=== PATIENT | male | born 1980 | race Caucasian/White ===

== ENCOUNTER 2017-05-10 14:00 | Emergency (ER) | payer OTHER ==
--- NOTE | 2017-05-10 14:20 | CPEKG ---
Heart Rate: 89 RR Interval: 674 P-R Interval: 164 QRSD Interval: 100 QT Interval: 380 QTC Interval: 463 P [place]: 72 QRS [place]: 58 T Wave [place]: 6 EKG Severity - NORMAL ECG - EKG Impression: SINUS RHYTHM Electronically Signed By: Sherif Mazariegos 10-May-2017 14:36:35
--- NOTE | 2017-05-10 14:32 | EDPHY ---
H & P Smoking Status: Current every day smoker Time Seen by Provider: 05/10/17 14:23 HPI/ROS: Chief complaint. Shortness of breath, anxiety HPI. 36-year-old male presents emergency department with fairly sudden onset of some chest tightness, some shortness of breath, anxiety. Patient is in a 28 day rehab facility and he is at date 04/08 and contemplating being discharged in returning to his life in [place]. This is making him very anxious. He has had similar symptoms before. The chest tightness is described as precordial anterior chest without any radiation. Slight shortness of breath with and quite shaking and anxious. His symptoms are not worse with deep breathing position or movement. In fact he feels better with walking around and pacing. No fever cough. No unusual leg pain or swelling. No abdominal pain or nausea vomiting. ROS Constitutional. no fever/chills, no weakness Eyes. no problems with vision ENT. no sore throat, no nasal drainage Cardiovascular. Chest tightness Respiratory. Shortness of breath Abdominal. no abdominal pain, no nausea/vomiting, no diarrhea . no problems urinating MS. no calf pain/swelling, no neck/back pain, no joint pain Skin. no rash Lymph. no swollen glands Neuro. Anxiety (Sherif Mazariegos) Past Medical/Surgical History: The past medical history is significant for alcoholism, pancreatitis, anxiety No significant family history of early coronary artery disease (Sherif Mazariegos) Social History: The single, daily smoker, no alcohol (Sherif Mazariegos) Physical Exam: General Appearance: Alert, anxious well-developed male moderate distress vital signs significant for blood pressure 137/108 Eyes: Pupils equal and round no pallor or injection. ENT, Mouth: Mucous membranes are moist. Respiratory: There are no retractions, lungs are clear to auscultation. Cardiovascular: Regular rate and rhythm. Gastrointestinal: Abdomen is soft and nontender, no masses, bowel sounds normal. Neurological: Awake and alert, sensory and motor exams grossly normal. Skin: Warm and dry, no rashes. Musculoskeletal: Neck is supple nontender. Extremities symmetrical, full range of motion. Psychiatric: Patient is oriented X 3, he is anxious. (Sherif Mazariegos) Constitutional: Initial Vital Signs Temperature (C) 36.6 C 05/10/17 14:03 Heart Rate 87 05/10/17 14:03 Respiratory Rate 18 02/23/18 14:03 Blood Pressure 137/108 H 05/10/17 14:03 O2 Sat (%) 97 05/10/17 14:03 O2 Delivery Mode Room Air Allergies/Adverse Reactions: No Known Allergies Allergy (Unverified 05/10/17 14:03) Home Medications: Medication Instructions Recorded Abilify 05/10/17 Naloxone HCl 05/10/17 Omeprazole 05/10/17 Propranolol Sr 05/10/17 Prozac 10 MG (*) 05/10/17 Medical Decision Making - Diagnostics EKG Interpretation: EKG interpreted by me shows normal sinus rhythm normal interval and axis. QRS is normal there is no significant ST elevation or depression. There is no arrhythmia. The rate is 89 (Sherif Mazariegos) Repeat EKG EKG shows normal sinus rhythm, normal rate, normal axis, normal intervals. There are no ST or T-wave abnormalities. EKG is normal as interpreted by me. (Deysi Valdez) Procedures: IV normal saline, monitor (Sherif Mazariegos) ED Course/Re-evaluation: The patient tells me he has been to emergency department multiple times for anxiety similar to this. He has always been given Ativan which resolved his symptoms. Because he is in the treatment program he and the therapist who is with him requests no Ativan. He was given propranolol 40 mg prior to arrival ( Sherif Mazariegos) 1500: Patient was signed out to me at change of shift. Dr. Mazariegos reported that he felt this was likely anxiety related. He felt that the patient's cardiac enzyme and EKG was negative he could be discharged home. I went personally evaluated the patient. He had no chest pain at this time. Patient's troponin was unremarkable. EKG was normal. I discussed my plan with the patient. I will wait for 3 hr troponin and repeat EKG. He agrees with this plan. Repeat EKG is normal. Repeat troponin is normal. (Deysi Valdez) Differential Diagnosis: My differential includes but is not limited to ACS, acute [place], dysrhythmia, PE, dissection, aneurysm, pneumonia, bronchitis (Deysi Valdez) Care Turn Over: Care to Dr. Valdez at 3:00 p.m. (Sherif Mazariegos) - Data Points Laboratory Results: Laboratory Results 05/10/17 14:25 05/10/17 14:25 05/10/17 05/10/17 05/10/17 17:45 14:25 14:25 WBC 8.91 10^3/uL 10^3/uL (3.80-9.50) RBC 4.55 10^6/uL 10^6/uL (4.40-6.38) Hgb 15.6 g/dL g/dL (13.7-17.5) Hct 44.6 % % (40.0-51.0) MCV 98.0 fL fL (81.5-99.8) MCH 34.3 pg H pg (27.9-34.1) MCHC 35.0 g/dL g/dL (32.4-36.7) RDW 11.5 % % (11.5-15.2) Plt Count 244 10^3/uL 10^3/uL (150-400) MPV 10.2 fL fL (8.7-11.7) Neut % (Auto) 51.1 % % (39.3-74.2) Lymph % (Auto) 37.5 % % (15.0-45.0) [place] % (Auto) 6.1 % % (4.5-13.0) Eos % (Auto) 4.2 % % (0.6-7.6) Baso % (Auto) 0.9 % % (0.3-1.7) Nucleat RBC Rel Count 0.0 % % (0.0-0.2) Absolute Neuts (auto) 4.56 10^3/uL 10^3/uL (1.70-6.50) Absolute Lymphs (auto) 3.34 10^3/uL H 10^3/uL (1.00-3.00) Absolute Monos (auto) 0.54 10^3/uL 10^3/uL (0.30-0.80) Absolute Eos (auto) 0.37 10^3/uL 10^3/uL (0.03-0.40) Absolute Basos (auto) 0.08 10^3/uL 10^3/uL (0.02-0.10) Absolute Nucleated RBC 0.00 10^3/uL 10^3/uL (0-0.01) Immature Gran % 0.2 % % (0.0-1.1) Immature Gran # 0.02 10^3/uL 10^3/uL (0.00-0.10) Sodium 139 mEq/L mEq/L (135-145) Potassium 4.2 mEq/L mEq/L (3.5-5.2) Chloride 106 mEq/L mEq/L (97-110) Carbon Dioxide 20 mEq/l L mEq/l (22-31) Anion Gap 13 mEq/L mEq/L (8-16) BUN 15 mg/dL mg/dL (7-23) Creatinine 0.7 mg/dL mg/dL (0.7-1.3) Estimated GFR > 60 Glucose 137 mg/dL H mg/dL (70-100) Calcium 9.9 mg/dL mg/dL (8.5-10.4) Troponin I < 0.012 ng/mL ng/mL < 0.012 ng/mL ng/mL (0.000-0.034) (0.000-0.034) Departure - Departure Disposition: Home, Routine, Self-Care Clinical Impression: Chest pain Qualifiers: Chest pain type: other chest pain Qualified Code(s): R07.89 - Other chest pain ; R07.8 - Other chest pain Condition: Good Instructions: Chest Pain (ED) Additional Instructions: Return with increasing chest pain, shortness of breath or any other concerns. Call cardiology to make the next available appointment. Referrals: [facility] [Provider Group] - 2-3 days without fail
[2017-05-10 15:06] LABS: PLATELET COUNT 244 10^3/uL (150-400)
--- NOTE | 2017-05-10 18:15 | CPEKG ---
Heart Rate: 54 RR Interval: 1111 P-R Interval: 176 QRSD Interval: 104 QT Interval: 456 QTC Interval: 433 P [place]: 41 QRS [place]: 55 T Wave [place]: 24 EKG Severity - OTHERWISE NORMAL ECG - EKG Impression: SINUS RHYTHM EKG Impression: LOW VOLTAGE IN FRONTAL LEADS Electronically Signed By: Deysi Valdez 11-May-2017 20:12:18
[2017-05-10 18:53] VITALS: TEMP 98.1
[2017-05-10 19:08] VITALS: BP 116/71; PULSE 55; RESP 18; O2SAT 96
== END 2017-05-10 19:08 | disposition home or self-care (01) ==
DX: R07.89 Other chest pain (principal); F17.200 Nicotine dependence, unspecified, uncomplicated